=== PATIENT | male | born 1955 | race Hispanic/Latino ===

== ENCOUNTER 2018-04-02 10:31 | Day surgery (SDC) | payer MEDICARE ==
[2018-04-02 12:10] LABS: Basophils # (Auto) 0.1 K/mm3 (0.0-0.1); Basophils % (Auto) 0.7 % (0.0-1.8); Eosinophils # (Auto) 0.2 K/mm3 (0.0-0.4); Eosinophils % (Auto) 2.5 % (0.0-4.3); Hematocrit 47.6 % (35.5-45.6); Hemoglobin 16.1 gm/dl (11.8-15.2); Lymphocytes # (Auto) 3.3 K/mm3 (1.2-5.4); Lymphocytes % (Auto) 34.8 % (13.4-35.0); Mean Corpuscular HGB Conc 34 % (32-34); Mean Corpuscular Volume 91 fl (84-94); Monocytes % (Auto) 11.1 % (0.0-7.3); Platelet Count 282 K/mm3 (140-440); Red Blood Count 5.24 M/mm3 (3.65-5.03); Red Cell Distribution Width 12.9 % (13.2-15.2)
[2018-04-02 12:20] LABS: INR 0.91 (0.87-1.13)
[2018-04-02 12:21] LABS: Partial Thromboplastin Time 20.4 Sec. (24.2-36.6)
[2018-04-02] MEDS ORDERED: DIPRIVAN 10 MG/ML IV ONE ×4 (12:28)
[2018-04-02] MEDS ORDERED: VERSED ONE (12:28)
[2018-04-02] MEDS ORDERED: DILAUDID ONE (12:28)
[2018-04-02 12:32] LABS: Alanine Aminotransferase 17 units/L (7-56); Albumin 4.6 g/dL (3.9-5); BUN/Creatinine Ratio 9; Blood Urea Nitrogen 11 mg/dL (9-20); Calcium 9.2 mg/dL (8.4-10.2); Hemolysis Index 48
[2018-04-02] MEDS ORDERED: NACL 0.9% 500 ML IR ONE (12:46)
--- NOTE | 2018-04-02 12:46 | Anesthesia Consultation ---
Anesthesia Consult and Med Hx Date of service: 04/02/18 - Airway Anesthetic Teeth Evaluation: Dentures (upper and lower) ROM Head & Neck: Adequate Mental/Hyoid Distance: Inadequate Mallampati Class: Class II - Pre-Operative Health Status ASA Pre-Surgery Classification: ASA3 Proposed Anesthetic Plan: MAC - Cardiovascular System Hx Coronary Artery Disease: Yes Hx Heart Attack/AMI: Yes (2007) Hx Pacemaker: Yes Hx Internal Defibrillator: Yes - Additional Comments Anesthesia Medical History Comments: HIV positive
[2018-04-02] MEDS ORDERED: ANCEF/STERILE WATER 2 GM/20 ML 2 GM/20 ML SYRINGE IV ONE (12:47)
--- NOTE | 2018-04-02 12:47 | Anesthesia Day of Surgery ---
Anesthesia Day of Surgery - Day of Surgery Patient Examined: Yes Patient H&P Reviewed: Yes Patient is NPO: Yes
[2018-04-02] MEDS: MARCAINE 0.5% INFILTRATI ONE ×2 (12:57→13:06)
[2018-04-02] MEDS: XYLOCAINE 1% 20 mL ONE ×2 (12:57→13:06)
[2018-04-02] MEDS ORDERED: NACL 0.9% 1,000 ML, .VANCOMYCIN VIAL 1,000 MG IR ONE (12:58)
[2018-04-02] MEDS ORDERED: NACL 0.9% 1000 ML 1,000 ML IV SCH (13:00)
[2018-04-02 15:28] VITALS: BP 137/85
== END 2018-04-02 10:32 | disposition home or self-care (01) ==
LOC: CATHLABREC 10:31
PROVIDERS: ATTEND Internal Medicine Cardiovascular Disease
DX: I25.5 Ischemic cardiomyopathy (principal); E78.2 Mixed hyperlipidemia; I25.2 Old myocardial infarction; I25.10 Atherosclerotic heart disease of native coronary artery without angina pectoris; Z79.899 Other long term (current) drug therapy; Z98.61 Coronary angioplasty status; Z95.810 Presence of automatic (implantable) cardiac defibrillator; Z79.01 Long term (current) use of anticoagulants
CPT/HCPCS: 33263; 36415; 80048; 80053; 85025; 85610; 85730; 93005; 93010; C1721; J0690; J1170; J2250; J2704; J3370; J7030

== ENCOUNTER 2018-07-16 10:42 | Day surgery (SDC) | payer MEDICARE ==
[~2018-07-16 10:42] MED LIST: NACL 0.9% 1000 ML 1,000 ML IV SCH
--- NOTE | 2018-07-16 11:41 | Anesthesia Day of Surgery ---
Anesthesia Day of Surgery - Day of Surgery Patient Examined: Yes Patient H&P Reviewed: Yes Patient is NPO: Yes Beta Blockers: No
--- NOTE | 2018-07-16 11:49 | Anesthesia Consultation ---
Anesthesia Consult and Med Hx Date of service: 07/16/18 - Airway Anesthetic Teeth Evaluation: Good, Dentures ROM Head & Neck: Adequate Mental/Hyoid Distance: Adequate Mallampati Class: Class II Intubation Access Assessment: Good - Pre-Operative Health Status ASA Pre-Surgery Classification: ASA4 Proposed Anesthetic Plan: MAC - Cardiovascular System Hx Hypertension: Yes (Can climb two flights of stairs) Hx Coronary Artery Disease: Yes (Stent) Hx Heart Attack/AMI: Yes Hx Cardia Arrhythmia: Yes Hx Pacemaker: Yes (Discharged once shortly after placement) Hx Internal Defibrillator: Yes (Ischemic cardiomyopathy; ECHO 03/2018 ) - Gastrointestinal Hx Gastroesophageal Reflux Disease: Yes (Chronic pancreatitis) - Additional Comments Anesthesia Medical History Comments: HIV+
[2018-07-16] MEDS ORDERED: DIPRIVAN 10 MG/ML IV ONE ×2 (12:00)
--- NOTE | 2018-07-16 12:29 | Short Stay Summary ---
Short Stay Documentation Date of service: 07/16/18 Narrative H&P: The patient presents for screening colonoscopy. No hx polyps or FH or colon neoplasia. Last colonoscopy was 12 years ago. - History Past Medical History: CAD, heart failure, HIV/AIDS, other (chronic pancreatitis) Past Surgical History: Other (defibrillator) Social history: no significant social history, single, Lives alone - Allergies and Medications Current Medications: Allergies No Known Allergies Allergy (Verified 07/12/18 14:44) Home Medications Medication Instructions Recorded Confirmed Last Taken Type Atorvastatin 80 mg PO DAILY 07/16/18 07/16/18 07/15/18 History Coreg 1 tab PO DAILY 07/16/18 07/16/18 07/15/18 History Digoxin 125 mcg PO DAILY 07/16/18 07/16/18 07/15/18 History Ms Contin 80 mg PO BID 07/16/18 07/16/18 07/15/18 History Active Medications Sodium Chloride (Nacl 0.9% 1000 Ml) 1,000 mls @ 50 mls/hr IV DIRECT STANLEY Last Admin: 07/16/18 11:39 Dose: 50 mls/hr Documented by: - Physical exam General appearance: no acute distress, well-nourished Integumentary: no rash, no growths, no abnormal pigmentation HEENT: Atraumatic, PERRLA, EOMI, Mucous membr. moist/pink Lungs: Clear to auscultation, Normal air movement Breasts: deferred Heart: Regular rate, Normal S1, Normal S2, No murmurs Gastrointestinal: normoactive bowel sounds, no tenderness, no distended, no masses, no guarding, no organomegaly, no obese Male Genitourinary: deferred Rectal Exam: deferred Extremities: no ischemia, pulses intact, pulses symmetrical, No edema, normal temperature, normal color, Full ROM Neurological: Normal gait, Normal speech, Strength at 5/5 X4 ext, Normal tone, Sensation intact, Cranial nerves 3-12 NL - Brief post op/procedure progress note Date of procedure: 07/16/18 Procedure: see dictated report Findings: see dictated report Estimated blood loss: none Pathology: list (rectal polyp) Specimen disposition: to lab Condition: stable - Disposition Condition at discharge: Good Disposition: DC-01 TO HOME OR SELFCARE - Discharge Diagnoses (1) Colon cancer screening Status: Acute Short Stay Discharge Plan Activity: other (no driving for 24 hours) Weight Bearing Status: Full Weight Bearing Diet: regular Follow up with: HAN GONZALEZ MD [Primary Care Provider] - 7 Days
--- NOTE | 2018-07-16 12:33 | Operative Report ---
Operative Report Operative Report: Date of procedure: 07/16/2018 Preprocedure diagnosis: Cancer screening, average risk. Last study 12 years ag o. Post procedure diagnosis: 6 mm rectal polyp. Mild diverticulosis of the left colon. Procedure: Colonoscopy to the cecum with cold snare polypectomy Endoscopist: Dr. Harris Anesthesia: Monitored anesthesia care per anesthesia department Estimated blood loss: 0 Medications: Monitored anesthesia care. See separate report by anesthesia for details. After careful discussion of the nature and purpose of the procedure as well as details of the technique risks benefits and alternatives the patient gave consent. Please see recent history and physical from the office. The patient was placed in the left lateral decubitus position and medicated per anesthesia. A rectal exam was performed sphincter tone was normal there were no masses palpable. The Ledburyn 570 scope was passed transanally and advanced under continuous direct vision without difficulty to the cecum. The colon was well prepared. The cecum was normal. The ascending colon was normal and on forward and retroflexed views. The transverse colon normal. There were a few diverticula in the descending colon and sigmoid colon. The rectum reveals a 6 mm semi- pedunculated polyp. Polyp was removed with cold snare was suctioned and retrieved by suction. The rectum was otherwise normal on forward and retroflexed views. The procedure was well-tolerated overall and the patient was observed in recovery. Conclusions: 6 mm rectal polyp. Mild left colon diverticulosis Plan: Await pathology. Follow-up colonoscopy in 5 years if the polyp is adenomatous, otherwise a 10 year interval. Signed electronically: Chip Harris M.D.
[2018-07-16 13:03] VITALS: BP 141/83
== END 2018-07-16 10:43 | disposition home or self-care (01) ==
LOC: GIO 10:42
PROVIDERS: ATTEND Internal Medicine Gastroenterology
DX: Z12.11 Encounter for screening for malignant neoplasm of colon (principal); K62.1 Rectal polyp; K86.1 Other chronic pancreatitis; K57.30 Diverticulosis of large intestine without perforation or abscess without bleeding; F17.210 Nicotine dependence, cigarettes, uncomplicated; I25.10 Atherosclerotic heart disease of native coronary artery without angina pectoris; E78.00 Pure hypercholesterolemia, unspecified; I10 Essential (primary) hypertension; K21.9 Gastro-esophageal reflux disease without esophagitis; F32.9 Major depressive disorder, single episode, unspecified; F41.9 Anxiety disorder, unspecified; Z98.890 Other specified postprocedural states; Z79.899 Other long term (current) drug therapy; Z95.0 Presence of cardiac pacemaker
CPT/HCPCS: 45385; 88305; J2704; J7030